=== PATIENT | male | born 1985 | race Caucasian/White ===

== ENCOUNTER 2022-02-17 15:14 | Emergency (ER) | payer MEDICAID ==
[2022-02-17] MEDS ORDERED: Ketorolac 30 MG/ML SDV IVPUSH ONE (15:39)
[2022-02-17] MEDS ORDERED: Ketorolac 30 MG/ML SDV ONE (15:59)
[2022-02-17 16:15] LABS: ESTIMATED GFR 75 mL/min (>60)
[2022-02-17] MEDS ORDERED: Naproxen 500 MG Tab ONE (17:30)
== END 2022-02-17 17:36 | disposition home or self-care (01) ==
LOC: LB.ED 15:14
DX: S29.012A Strain of muscle and tendon of back wall of thorax, initial encounter (principal); F17.210 Nicotine dependence, cigarettes, uncomplicated; Z20.822 Contact with and (suspected) exposure to COVID-19
CPT/HCPCS: 36415; 71045; 74176; 80053; 81001; 85025; 85379; 87635; 96374; 99284; A9270; J1885; 99281; U0002

== ENCOUNTER 2022-04-29 20:10 | Emergency (ER) | payer MEDICAID ==
[2022-04-29] MEDS ORDERED: Sodium Chloride 0.9% 1,000 ML IV ONE (20:20)
[2022-04-29] MEDS: LORazepam 2 MG/ML SDV IVPUSH ONE ×2 (20:20→21:45)
[2022-04-29] MEDS ORDERED: Sodium Chloride 0.9% 10 ML Syringe FLUSH PRN (20:21)
[2022-04-29 20:47] LABS: ESTIMATED GFR 57 mL/min (>60)
[2022-04-29] MEDS ORDERED: Sodium Bicarbonate 8.4% 50 MEQ/50 ML Syringe IVPUSH ONE (21:38)
[2022-04-29] MEDS ORDERED: Sodium Bicarbonate 8.4% 50 MEQ/50 ML Syringe ONE (21:51)
[2022-04-29] MEDS ORDERED: Lactated Ringers 1,000 ML IV SCH (23:00)
[2022-04-29] MEDS ORDERED: Dextrose 5% in Water 1,000 ML IV SCH (23:00)
== END 2022-04-29 23:45 ==
LOC: LB.ED 20:10
DX: G93.41 Metabolic encephalopathy (principal); Z20.822 Contact with and (suspected) exposure to COVID-19
CPT/HCPCS: 36415; 70450; 80053; 80307; 82947; 83605; 84484; 85027; 87635; 93005; 96361; 96374; 96375; 96376; 99285; J2060; J7030; J7060; J7120; 93010; U0002

== ENCOUNTER 2022-05-14 12:26 | Emergency (ER) | payer MEDICAID ==
[2022-05-14] MEDS ORDERED: LORazepam 2 MG/ML SDV IM ONE (12:54)
[2022-05-14] MEDS ORDERED: LORazepam 2 MG/ML SDV ONE (13:03)
[2022-05-14] MEDS: LORazepam 2 MG/ML SDV IM ONE ×2 (13:03→13:15)
[2022-05-14 13:53] LABS: ESTIMATED GFR 78 mL/min (>60)
== END 2022-05-14 16:20 | disposition home or self-care (01) ==
LOC: LB.ED 12:26
DX: R45.851 Suicidal ideations (principal); Z20.822 Contact with and (suspected) exposure to COVID-19
CPT/HCPCS: 36415; 80053; 80143; 80307; 81001; 85025; 87635; 96372; 99283; 99284; J2060; U0002

== ENCOUNTER 2022-05-19 19:25 | Emergency (ER) | payer MEDICAID ==
[2022-05-19] MEDS: ALPRAZolam 0.25 MG Tab PO ONE (20:37)
[2022-05-19 21:07] LABS: ACETAMINOPHEN < 0.0 ug/mL
[2022-05-19 22:17] VITALS: BP 139/89; PULSE 85
== END 2022-05-20 07:58 ==
LOC: LB.ED 19:25
DX: R45.851 Suicidal ideations (principal); F17.210 Nicotine dependence, cigarettes, uncomplicated; Z20.822 Contact with and (suspected) exposure to COVID-19
CPT/HCPCS: 36415; 80053; 80143; 80307; 85025; 99284; A9270-GY; U0002